=== PATIENT | male | born 1960 | race Caucasian/White ===

== ENCOUNTER → 2019-03-14 07:41 | Outpatient (CLI) | payer OTHER, SELFPAY ==
[2019-02-24 08:56] VITALS: BMI 36.4
--- NOTE | 2019-03-14 07:42 | ECHOD_ITS ---
Reason For Study: Dyspnea/SOB Procedure This was a 2D Doppler, Color Flow transthoracic echocardiogram. Contrast injection was performed. Exam performed in department. Left Ventricle Normal left ventricle. Left ventricular systolic function is normal. The estimated ejection fraction is 60 %. Mild segmental systolic dysfunction (see wall motion). Stage 1 diastolic dysfunction. Infero-Basal: Severely Hypokinetic. Posterior-Basal: Hypokinetic. Basal inferoseptal: Severely Hypokinetic. Right Ventricle Normal RV size. Normal systolic function. Atria Normal left atrium. Normal right atrium. Mitral Valve Normal mitral valve. Tricuspid Valve Normal tricuspid valve. Aortic Valve Normal aortic valve. Trisinus/trileaflet aortic valve. Pulmonic Valve Normal pulmonic valve. Great Vessels Normal aortic root. The pulmonary artery is normal size. Normal inferior vena cava. Pericardium/Pleural No pericardial effusion. Medication Diluted definity 5ml given slow IV push to enhance endocardial definition. MMode/2D Measurements & Calculations LVIDd: 4.9 cm IVSd: 1.3 cm Ao root diam: 3.3 cm LVIDs: 3.1 cm LVPWd: 0.96 cm RVDd: 2.9 cm FS: 36.7 % LAV(MOD-bp): 59.9 ml LA A4 area: 20.4 cm2 LA dimension(2D): 3.5 cm LAV(MOD-bp) Indexed: 25.7 ml/m2 LAV(MOD-sp2): 60.5 ml LAV(MOD-sp4): 49.6 ml RA A4 area: 13.2 cm2 Doppler Measurements & Calculations MV E max rodo: 77.3 cm/sec Lat Peak E' Rodo: 9.0 cm/sec Med Peak E' Rodo: 6.0 cm/sec MV A max rodo: 94.3 cm/sec E/E' lat: 8.6 E/E' med: 12.9 MV E/A: 0.82 Ao V2 max: 144.0 cm/sec LV V1 max: 114.5 cm/sec PA V2 max: 125.2 cm/sec Ao max P.3 mmHg LV V1 max P.2 mmHg Ao V2 mean: 98.9 cm/sec Ao mean P.3 mmHg Ao V2 VTI: 27.8 cm Interpretation Summary Normal left ventricle. Left ventricular systolic function is normal. The estimated ejection fraction is 60 %. Infero-Basal: Severely Hypokinetic. Mild segmental systolic dysfunction (see wall motion). Stage 1 diastolic dysfunction. Contrast injection was performed. Ordering Physician: Chevy Uribe Referring Physician: Julian Viera Performed By: Ethel Roth, ELMER, RVT
== END ==
PROVIDERS: Family Provider Family Medicine; PCP Family Medicine; Referring Provider Internal Medicine Cardiovascular Disease; Visit Provider Internal Medicine Cardiovascular Disease
DX: I25.5 Ischemic cardiomyopathy (principal); I10 Essential (primary) hypertension
CPT/HCPCS: 93306; Q9957; A4216; C8929

== ENCOUNTER → 2021-10-18 | Outpatient (CLI) | payer OTHER, SELFPAY ==
[2021-10-21 10:47] LABS: V-Zoster IgG (Immunity) 1234 index (Immune >165)
== END | disposition home or self-care (01) ==
LOC: MTLAB 10:18
PROVIDERS: PCP Family Medicine; Referring Provider Family Medicine; Visit Provider Family Medicine
DX: Z01.84 Encounter for antibody response examination (principal)
CPT/HCPCS: 36415; 86787